=== PATIENT | male | born 1980 | race African-American/Black ===

== ENCOUNTER 2016-09-19 09:48 | Inpatient (IN) | payer MEDICARE, OTHER ==
[2016-09-19] VITALS (10 sets, daily range): BP systolic 102–130; BP diastolic 61–77; PULSE 74–90; RESP 14–20; TEMP 97.6–98.2; O2SAT 93–100
[~2016-09-19] VITALS: Ht 175.3 cm; Wt 68.0 kg
[2016-09-19] MEDS ORDERED: SODIUM CHLOR 0.9% 1000 ML INJ 1,000 ML IV ONE (10:20)
[2016-09-19] MEDS ORDERED: PROM25TA5 PO (10:21)
[2016-09-19] MEDS ORDERED: DILA4TAB2 PO (10:21)
[2016-09-19] MEDS ORDERED: ONDANSETRON HCL 4 MG/2 ML VIAL IVP ONE (10:30)
[2016-09-19] MEDS ORDERED: HYDROmorphone HCL PF 1 MG/ML VIAL IVS ONE (10:30)
[2016-09-19] MEDS: SODIUM CHLORIDE 0.9% FLUSH 5 ML FLUSH IVF PRN ×3 (10:33→13:03)
[2016-09-19] MEDS ORDERED: NUCY50TA9 PO (10:34)
[2016-09-19 11:00] LABS: BASOPHIL % 0.3 % (0.0-2.0); EOSINOPHIL # 0.1 TH/MM3 (0-0.4); EOSINOPHIL % 0.5 % (0.0-4.0); HEMATOCRIT 27.4 % (39.0-51.0); LYMPH % 36.6 % (9.0-44.0); LYMPHOCYTE # 4.9 TH/MM3 (1.0-4.8); MEAN CELL VOLUME 91.8 FL (80.0-100.0); MEAN CORPUSCULAR HEMOGLOBIN 32.4 PG (27.0-34.0); MEAN CORPUSCULAR HGB CONC 35.2 % (32.0-36.0); MONO % 10.2 % (0.0-8.0); NEUT % 52.4 % (16.0-70.0); PLATELET COUNT 357 TH/MM3 (150-450); RED BLOOD COUNT 2.99 MIL/MM3 (4.50-5.90); RED CELL DISTRIBUTION WIDTH 22.7 % (11.6-17.2); RETIC % 8.2 % (0.4-3.0); WHITE BLOOD COUNT 13.4 TH/MM3 (4.0-11.0)
[2016-09-19 11:02] LABS: HEMO FLAGS AUTO DIFF; REVIEW FLAG FINAL
--- NOTE | 2016-09-19 11:12 | RADRPT ---
EXAM DATE/TIME: 09/19/2016 10:56 [facility] COMPARISON: CHEST SINGLE AP, August 03, 2016, 9:13. INDICATIONS : Sickle cell crisis. Shortness of breath. MEDICAL HISTORY : Sickle Cell disease. SURGICAL HISTORY : None. ENCOUNTER: Initial ACUITY: 2 weeks PAIN SCORE: 0/10 LOCATION: Bilateral chest FINDINGS: PA and lateral views of the chest demonstrate a normal-sized cardiac silhouette. Right chest wall Inf use-a-Port remains present with lead tip in the right heart. No effusion, consolidation, or pneumotho rax is visualized. Bones and soft tissues demonstrate no acute finding. Cholecystectomy clips are pre sent. CONCLUSION: No acute cardiopulmonary abnormality is identified. Cdyrtl-j-Iwuo distal tip remains in the right hea rt. Will Jenkins MD on September 19, 2016 at 11:09 Board Certified Radiologist. This report was verified electronically.
[2016-09-19] MEDS ORDERED: HYDROmorphone HCL PF 1 MG/ML VIAL IV PUSH ONE ×2 (11:15→12:45)
[2016-09-19 11:16] LABS: ALKALINE PHOSPHATASE 131 U/L (45-117); ALT (GPT) 31 U/L (12-78); ANION GAP 11 MEQ/L (5-15); AST (GOT) 34 U/L (15-37); BICARBONATE 25.4 MEQ/L (21.0-32.0); BLOOD UREA NITROGEN 10 MG/DL (7-18); CHLORIDE 105 MEQ/L (98-107); GLOMERULAR FILTRATION RATE 228 ML/MIN (>89); SODIUM (NA) 141 MEQ/L (136-145); TOTAL BILIRUBIN ADULT 3.9 MG/DL (0.2-1.0)
[2016-09-19 11:23] LABS: POTASSIUM 2.9 MEQ/L (3.5-5.1)
[2016-09-19 12:07] LABS: CORRECTED NUCLEATED RBC 3 /100 WBC (0-0); NEUTROPHIL # MANUAL DIFF 8.8 TH/MM3 (1.8-7.7); POLYS (SEG NEUTROPHILS) 66 % (16-70); WBC DIFF SAMPLE 100
[2016-09-19 12:08] LABS: PLATELET ESTIMATE SMEAR NORMAL (NORMAL); PLATELET MORPHOLOGY NORMAL (NORMAL); POLYCHROMASIA 3.6 % (0.0-1.9); SCAN/DIFF FINAL DIFF MANUAL
[2016-09-19 12:09] LABS: OVALOCYTES 1+ (NORMAL); TARGET CELLS 1+ (NORMAL)
[2016-09-19 12:10] LABS: KERATOCYTES OCC (NORMAL)
--- NOTE | 2016-09-19 12:11 | RADRPT ---
EXAM DATE/TIME: 09/19/2016 11:01 [facility] COMPARISON: No previous studies available for comparison. INDICATIONS : Pain from sickle cell crisis. MEDICAL HISTORY : None. SURGICAL HISTORY : None. ENCOUNTER: Initial ACUITY: 2 weeks PAIN SCORE: 5/10 LOCATION: Left hip. FINDINGS: AP and lateral views of the left hip demonstrate a normal lucency in the femoral head characteristic of avascular necrosis. There is subtle step off along the superior femoral head possibly representing mild collapse. No fracture is identified. There is mild superior joint space narrowing. The remainin g visualized pelvic bones demonstrate no acute finding. CONCLUSION: Abnormal femoral head characteristic of avascular necrosis. There is a slight step off or flattening along the superior aspect which may represent mild collapse. Will Jenkins MD on September 19, 2016 at 12:08 Board Certified Radiologist. This report was verified electronically.
--- NOTE | 2016-09-19 12:12 | RADRPT ---
EXAM DATE/TIME: 09/19/2016 11:03 [facility] COMPARISON: HIP LEFT (AP&LAT 2/3VWS) WO AP PELVIS, September 19, 2016, 11:01. INDICATIONS : Pain from sickle cell crisis. MEDICAL HISTORY : None. SURGICAL HISTORY : None. ENCOUNTER: Initial ACUITY: 2 weeks PAIN SCORE: 5/10 LOCATION: Left hip. FINDINGS: 4 views of the left femur demonstrate no fracture or dislocation. There is abnormal lucency within th e left femoral head. No soft tissue abnormality or radiopaque foreign body is identified. CONCLUSION: Abnormal appearance of the femoral head characteristic of avascular necrosis. No acute abnormality is identified otherwise. Wlil Jenkins MD on September 19, 2016 at 12:09 Board Certified Radiologist. This report was verified electronically.
[2016-09-19] MEDS ORDERED: POTASSIUM CHLORIDE 10 MEQ CONTROLLED RELEASE TAB PO ONE (12:30)
--- NOTE | 2016-09-19 13:13 | PD ---
HPI Chief Complaint: Sickle Cell Time Seen by Provider: 10:15 Travel History International Travel<30 days: No Contact w/Intl Traveler<30days: No Traveled to known affect area: No History of Present Illness HPI Patient is a 36 year old male complaining of pain all over, consistent with his sickle cell pain. He says his right leg has been hurting him for the past week. He saw Dr. Alfonso yesterday for the pain and was given IVF and Dilaudid and he ordered Xrays for his legs. He says he occasionally feels short of breath from the pain. He denies any chest pain. He tried taking his Dilaudid at home, but it did not help, so he came in. He has not had any fevers. He denies any leg swelling or any injuries. PFSH Past Medical History Diminished Hearing: No Implanted Vascular Access Dvce: Yes (POWER PORT) Sickle Cell Disease: Yes Tetanus Vaccination: Unknown Influenza Vaccination: No Past Surgical History Cholecystectomy: Yes Other Surgery: Yes (PORT PLACED) Social History Alcohol Use: Yes (OCC) Tobacco Use: No Substance Use: No Allergies-Medications (Allergen,Severity, Reaction): Coded Allergies: No Known Allergies (Unverified , 08/03/16) Reported Meds & Prescriptions Reported Meds & Active Scripts Active Reported Nucynta (Tapentadol) 50 Mg Tab 50 Mg PO Q4H PRN Dilaudid (Hydromorphone HCl) 4 Mg Tab 4 Mg PO Q6H PRN Phenergan (Promethazine HCl) 25 Mg Tab 25 Mg PO Q6H PRN Review of Systems Except as stated in HPI: all other systems reviewed are Neg General / Constitutional: No: Fever HENT: No: Headaches, Lightheadedness Cardiovascular: No: Chest Pain or Discomfort Respiratory: Positive: Shortness of Breath, No: Cough Gastrointestinal: No: Nausea, Vomiting Genitourinary: No: Dysuria Musculoskeletal: Positive: Myalgias, Arthralgias Skin: No Rash, No Change in Pigmentation Neurologic: No: Weakness, Dizziness Physical Exam Narrative GENERAL: Awake and alert in no acute distress. SKIN: Warm and dry. HEAD: Atraumatic. Normocephalic. EYES: Pupils equal and round. No scleral icterus. ENT: Mucous membranes pink and moist. NECK: Trachea midline. No JVD. CARDIOVASCULAR: Regular rate and rhythm. No murmur appreciated. RESPIRATORY: No accessory muscle use. Clear to auscultation. Breath sounds equal bilaterally. GASTROINTESTINAL: Abdomen soft, non-tender, nondistended. MUSCULOSKELETAL: No obvious deformities. No clubbing. No cyanosis. No edema. No calf tenderness. NEUROLOGICAL: Awake and alert. No obvious cranial nerve deficits. Motor grossly within normal limits. Normal speech. PSYCHIATRIC: Appropriate mood and affect; insight and judgment normal. Data Data Last Documented VS Vital Signs Date Time Temp Pulse Resp B/P Pulse Ox O2 Delivery O2 Flow Rate FiO2 09/19/16 13:00 82 16 130/75 98 Room Air 09/19/16 11:06 2 09/19/16 09:50 98.2 Orders Complete Blood Count With Diff (09/19/16 10:20) Comprehensive Metabolic Panel (09/19/16 10:20) Retic Count (09/19/16 10:20) Chest, Pa & Lat (09/19/16 10:20) Ecg Monitoring (09/19/16 10:20) Iv Access Insert/Monitor (09/19/16 10:20) Oximetry (09/19/16 10:20) Ondansetron Inj (Zofran Inj) (09/19/16 10:30) Sodium Chloride 0.9% Flush (Ns Flush) (09/19/16 10:30) Sodium Chlor 0.9% 1000 Ml Inj (Ns 1000 M (09/19/16 10:20) Hydromorphone Pf Inj (Dilaudid Pf Inj) (09/19/16 10:30) Femur (Ap & Lat/2vws) (09/19/16 ) Hip, Uni(Ap&Lat) Wo Ap Pelvis (09/19/16 ) Hydromorphone Pf Inj (Dilaudid Pf Inj) (09/19/16 11:15) Potassium Chloride (Kcl) (09/19/16 12:30) Hydromorphone Pf Inj (Dilaudid Pf Inj) (09/19/16 12:45) Admit Order (Ed Use Only) (09/19/16 ) Ns + Kcl 20 Meq Inj (Ns + Kcl 20 Meq Inj (09/19/16 15:00) Hydromorphone (Dilaudid) (09/19/16 13:30) Labs Laboratory Tests Test 09/19/16 10:30 White Blood Count 13.4 TH/MM3 Red Blood Count 2.99 MIL/MM3 Hemoglobin 9.7 GM/DL Hematocrit 27.4 % Mean Corpuscular Volume 91.8 FL Mean Corpuscular Hemoglobin 32.4 PG Mean Corpuscular Hemoglobin 35.2 % Concent Red Cell Distribution Width 22.7 % Platelet Count 357 TH/MM3 Mean Platelet Volume 10.1 FL Neutrophils (%) (Auto) 52.4 % Lymphocytes (%) (Auto) 36.6 % Monocytes (%) (Auto) 10.2 % Eosinophils (%) (Auto) 0.5 % Basophils (%) (Auto) 0.3 % Neutrophils # (Auto) 7.0 TH/MM3 Lymphocytes # (Auto) 4.9 TH/MM3 Monocytes # (Auto) 1.4 TH/MM3 Eosinophils # (Auto) 0.1 TH/MM3 Basophils # (Auto) 0.0 TH/MM3 CBC Comment AUTO DIFF Differential Total Cells 100 Counted Neutrophils % (Manual) 66 % Lymphocytes % 24 % Monocytes % 10 % Neutrophils # (Manual) 8.8 TH/MM3 Nucleated Red Blood Cells 3 /100 WBC Differential Comment FINAL DIFF MANUAL Platelet Estimate NORMAL Platelet Morphology Comment NORMAL Polychromasia 3.6 % Target Cells 1+ Ovalocytes 1+ Keratocytes OCC Red Cell Morphology Comment Reticulocyte Count 8.2 % Absolute Reticulocyte Count 243.6 MIL/L Sodium Level 141 MEQ/L Potassium Level 2.9 MEQ/L Chloride Level 105 MEQ/L Carbon Dioxide Level 25.4 MEQ/L Anion Gap 11 MEQ/L Blood Urea Nitrogen 10 MG/DL Creatinine 0.50 MG/DL Estimat Glomerular Filtration 228 ML/MIN Rate Random Glucose 105 MG/DL Calcium Level 8.4 MG/DL Magnesium Level 1.9 MG/DL Total Bilirubin 3.9 MG/DL Aspartate Amino Transf 34 U/L (AST/SGOT) Alanine Aminotransferase 31 U/L (ALT/SGPT) Alkaline Phosphatase 131 U/L Total Protein 8.4 GM/DL Albumin 4.3 GM/DL [facility] Medical Decision Making Medical Screen Exam Complete: Yes Emergency Medical Condition: Yes Medical Record Reviewed: Yes Differential Diagnosis Sickle cell pain crisis versus anemia versus electrolyte abnormality versus dehydration Narrative Course Patient is a 36-year-old male complaining of pain all over, similar to previous sickle cell crises. Exam shows no acute abnormalities. Labs sent, patient given IV fluids as well as Dilaudid for pain. Labs show a white blood cell count of 13.4, which is similar to previous. Hemoglobin is 9.7 with a reticulocyte count of 8.2, which is appropriately elevated. Potassium is low at 2.9, this was replaced. Chest x-ray shows no acute abnormalities. Hip x-ray is concerning for avascular necrosis. He continued to have pain, given second dose of hydromorphone. Patient continued to complain of pain. I discussed with him admission for his symptoms, and he feels this is necessary at this time. Given third dose of hydromorphone. Patient will be admitted for further management. Diagnosis Primary Impression: Sickle cell crisis Additional Impression: Avascular necrosis Admitting Information Admitting Physician Requests: Admit Ramona Bobo MD Sep 19, 2016 13:13
[2016-09-19] MEDS ORDERED: BISACODYL 10 MG SUPP PR PRN (13:30)
[2016-09-19] MEDS ORDERED: METOCLOPRAMIDE HCL 10 MG/2 ML VIAL IV PUSH PRN (13:30)
[2016-09-19] MEDS ORDERED: ACETAMINOPHEN 325 MG TAB PO PRN (13:30)
[2016-09-19] MEDS ORDERED: HYDROmorphone HCL PF 2 MG/ML VIAL IV PRN (13:30)
[2016-09-19] MEDS ORDERED: MAGNESIUM HYDROXIDE SUSP 30 ML CUP PO PRN (13:30)
[2016-09-19] MEDS ORDERED: SENNOSIDES 8.6 MG TAB PO PRN (13:30)
[2016-09-19] MEDS ORDERED: PROCHLORPERAZINE 25 MG SUPP PR PRN (13:30)
[2016-09-19] MEDS ORDERED: NALOXONE HCL 0.4 MG/ML AMP IV PRN (13:30)
[2016-09-19] MEDS ORDERED: SODIUM CHLORIDE 0.9% FLUSH 5 ML FLUSH FLUSH PRN (13:30)
[2016-09-19] MEDS: NS + KCL 20 MEQ INJ 1,000 ML IV SCH ×2 (13:52→23:38)
[2016-09-19] MEDS: DOCUSATE SODIUM 100 MG CAP PO SCH ×2 (13:52→20:57)
--- NOTE | 2016-09-19 15:22 | HHI.HP ---
[facility] Service [facility] Primary [facility] Physician Non-Staff Admission Diagnosis sickle cell crisis Diagnoses: Chief Complaint: Generalized pain Travel History International Travel<30 Days: No Contact w/Intl Traveler <30 Da: No Traveled to Known Affected Are: No History of Present Illness 36-year-old male with a past medical history of sickle cell disease who presents with sickle cell pain. The patient complains of generalized pain, typical of his usual sickle cell crisis. However he also has been having pain in his left lower extremity from his hip down to his knee that has been getting progressively worse over the past 2 months specially with ambulation. He denies any injury. He hasn't ambulate, but with a limp. He recently moved to this area and has been following with hematology, Dr. Alfonso, who has been managing his pain control. He denies any fever, chills, cough, nausea, vomiting , diarrhea, dysuria. Review of Systems Other 10 point review of systems performed and was negative except as stated in the history of present illness Past Family Social History Past Medical History Sickle cell disease History of acute chest syndrome Past Surgical History Port placement Cholecystectomy Reported Medications Nucynta (Tapentadol) 50 Mg Tab 50 Mg PO Q4H PRN Dilaudid (Hydromorphone HCl) 4 Mg Tab 4 Mg PO Q6H PRN Phenergan (Promethazine HCl) 25 Mg Tab 25 Mg PO Q6H PRN Allergies: Coded Allergies: No Known Allergies (Unverified , 08/03/16) Active Ordered Medications Current Medications Medications (Trade) Dose Ordered Sig/Arlen Route Start Time Stop Time Status Last Admin (NS + KCl 20 Meq Inj) 1,000 ml @ 100 mls/hr Q10H IV 09/19/16 15:00 09/19/16 13:52 (Dilaudid) 4 mg Q6H PRN PO 09/19/16 13:30 (NS Flush) 2 ml UNSCH PRN FLUSH 09/19/16 13:30 (NS Flush) 2 ml BID FLUSH 09/19/16 21:00 (Tylenol) 650 mg Q4H PRN PO 09/19/16 13:30 (Zofran Inj) 4 mg Q6H PRN IVP 09/19/16 13:30 (Reglan Inj) 5 mg Q6H PRN IV PUSH 09/19/16 13:30 (Compazine Supp) 25 mg Q12H PRN RI 09/19/16 13:30 (Dulcolax Supp) 10 mg DAILY PRN RI 09/19/16 13:30 (Colace) 100 mg Q12HR PO 09/19/16 13:30 09/19/16 13:52 (Milk Of Magnesia Liq) 30 ml Q12H PRN PO 09/19/16 13:30 (Senokot) 17.2 mg Q12H PRN PO 09/19/16 13:30 (Dilaudid Pf Inj) 2 mg Q4HR PRN IV 09/19/16 13:30 (Dilaudid Pf Inj) 2 mg Q4HR PRN IV 09/19/16 13:30 (Narcan Inj) 0.4 mg UNSCH PRN IV 09/19/16 13:30 (KCl) 40 meq ONCE ONCE PO 09/19/16 15:30 09/19/16 15:31 (Folate) 1 mg DAILY PO 09/19/16 15:15 UNV (Hydrea) 1,500 mg DAILY PO 09/20/16 09:00 UNV Family History Patient has a cousin with sickle cell disease, otherwise unremarkable family history Social History Denies any alcohol, tobacco, or illegal drug use Physical Exam Vital Signs Vital Signs Date Time Temp Pulse Resp B/P Pulse Ox O2 Delivery O2 Flow Rate FiO2 09/19/16 15:07 16 09/19/16 14:17 93 21 09/19/16 13:00 82 16 130/75 98 Room Air 09/19/16 12:11 16 09/19/16 12:00 74 16 125/76 97 Room Air 09/19/16 11:06 90 14 119/72 100 Nasal Cannula 2 09/19/16 11:01 16 09/19/16 10:30 78 16 118/71 100 Room Air 09/19/16 10:23 16 100 Room Air 09/19/16 09:55 18 100 Nasal Cannula 2 09/19/16 09:50 98.2 82 16 124/77 95 Room Air Physical Exam GENERAL: Well-developed well-nourished. In no acute distress. SKIN: Warm and dry. No lesions noted. HEENT: Normocephalic. Pupils equal and round. Mucous membranes pink and moist. CARDIOVASCULAR: Regular rate and rhythm. No murmur appreciated. RESPIRATORY: No accessory muscle use. Clear to auscultation. Breath sounds equal bilaterally. GASTROINTESTINAL: Abdomen soft, non-tender, nondistended. Bowel sounds x4. MUSCULOSKELETAL: Left hip with no obvious deformities, erythema. Painful ROM left hip. No clubbing or cyanosis. No edema. NEUROLOGICAL: Awake and alert. No focal neurological deficits. Moves upper and lower extremities spontaneously. Normal speech. PSYCHIATRIC: Appropriate mood and affect; insight and judgment normal. Laboratory Laboratory Tests Test 09/19/16 10:30 White Blood Count 13.4 Red Blood Count 2.99 Hemoglobin 9.7 Hematocrit 27.4 Mean Corpuscular Volume 91.8 Mean Corpuscular Hemoglobin 32.4 Mean Corpuscular Hemoglobin 35.2 Concent Red Cell Distribution Width 22.7 Platelet Count 357 Mean Platelet Volume 10.1 Neutrophils (%) (Auto) 52.4 Lymphocytes (%) (Auto) 36.6 Monocytes (%) (Auto) 10.2 Eosinophils (%) (Auto) 0.5 Basophils (%) (Auto) 0.3 Neutrophils # (Auto) 7.0 Lymphocytes # (Auto) 4.9 Monocytes # (Auto) 1.4 Eosinophils # (Auto) 0.1 Basophils # (Auto) 0.0 CBC Comment AUTO DIFF Differential Total Cells 100 Counted Neutrophils % (Manual) 66 Lymphocytes % 24 Monocytes % 10 Neutrophils # (Manual) 8.8 Nucleated Red Blood Cells 3 Differential Comment FINAL DIFF MANUAL Platelet Estimate NORMAL Platelet Morphology Comment NORMAL Polychromasia 3.6 Target Cells 1+ Ovalocytes 1+ Keratocytes OCC Red Cell Morphology Comment Reticulocyte Count 8.2 Absolute Reticulocyte Count 243.6 Sodium Level 141 Potassium Level 2.9 Chloride Level 105 Carbon Dioxide Level 25.4 Anion Gap 11 Blood Urea Nitrogen 10 Creatinine 0.50 Estimat Glomerular Filtration 228 Rate Random Glucose 105 Calcium Level 8.4 Magnesium Level 1.9 Total Bilirubin 3.9 Aspartate Amino Transf 34 (AST/SGOT) Alanine Aminotransferase 31 (ALT/SGPT) Alkaline Phosphatase 131 Total Protein 8.4 Albumin 4.3 Result Diagram: 09/19/16 1030 09/19/16 1030 Imaging Chest x-ray image interpreted by me with no acute cardio pulmonary disease Last Impressions Chest X-Ray 09/19/16 1020 Signed Impressions: Service Date/Time: Monday, September 19, 2016 10:56 - CONCLUSION: No acute cardiopulmonary abnormality is identified. [id number] distal tip remains in the right heart. Will Jenkins MD Hip X-Ray 09/19/16 0000 Signed Impressions: Service Date/Time: Monday, September 19, 2016 11:01 - CONCLUSION: Abnormal femoral head characteristic of avascular necrosis. There is a slight step off or flattening along the superior aspect which may represent mild collapse. Will Jenkins MD Femur X-Ray 09/19/16 0000 Signed Impressions: Service Date/Time: Monday, September 19, 2016 11:03 - CONCLUSION: Abnormal appearance of the femoral head characteristic of avascular necrosis. No acute abnormality is identified otherwise. Will Jenkins MD Assessment and Plan Problem List: (1) Avascular necrosis ICD Code: M87.00 Status: Acute (2) Sickle cell crisis ICD Code: D57.00 Status: Acute Assessment and Plan 36-year-old male with a past medical history of sickle cell disease who presents with sickle cell pain Sickle cell crisis: Hemoglobin 9.7, baseline around 10, stable. Absolute reticulocyte count elevated at 243. Continue pain control with oral and IV Dilaudid as needed. Continue hydroxyurea and folic acid. IVF. 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 Avascular necrosis of the left hip: Seen on x-ray, reviewed. Pain control. PT eval. Outpatient orthopedic follow-up. Hypokalemia: Potassium 2.9. Magnesium 1.9. Replace potassium orally. Follow- up BMP. Chronic mild leukocytosis. Monitor DVT prophylaxis: SCDs Written by Alfa Swift, acting as scribe for Dr. Ng on 09/19/16 at 15:14. The documentation accurately reflects the work performed [id number] by me on at 15:14 Discussed Condition With Patient Alfa Swift Sep 19, 2016 15:22 Raphael Ng MD Sep 19, 2016 15:29
[2016-09-19] MEDS ORDERED: POTASSIUM CHLORIDE 20 MEQ CONTROLLED RELEASE TAB PO ONE (15:30)
[2016-09-19] MEDS: FOLIC ACID 1 MG TAB PO SCH (16:34)
[2016-09-19] MEDS: HYDROmorphone HCL PF 2 MG/ML VIAL IV PRN ×2 (16:35→20:57)
[2016-09-19] MEDS: ONDANSETRON HCL 4 MG/2 ML VIAL IVP PRN (18:42)
[2016-09-19] MEDS: SODIUM CHLORIDE 0.9% FLUSH 5 ML FLUSH FLUSH SCH (20:56)
[2016-09-20] VITALS (8 sets, daily range): BP systolic 99–121; BP diastolic 57–76; PULSE 73–88; RESP 18–20; TEMP 96.7–97.9; O2SAT 93–94
[2016-09-20] MEDS: HYDROmorphone HCL PF 2 MG/ML VIAL IV PRN ×6 (00:38→22:46)
--- NOTE | 2016-09-20 08:51 | HHI.PR ---
Subjective Remarks Follow-up for sickle cell crisis. The patient states his pain as a 7/10 in severity. Pain continues to be generalized. He denies any significant change overnight. Objective Vitals Vital Signs Date Time Temp Pulse Resp B/P Pulse Ox O2 Delivery O2 Flow Rate FiO2 09/20/16 07:31 96.9 78 18 99/58 93 09/20/16 05:26 97.2 88 20 121/76 93 09/20/16 00:49 97.6 86 20 105/63 94 09/19/16 20:00 80 09/19/16 20:00 95 09/19/16 19:53 97.6 77 20 102/63 96 09/19/16 17:05 16 09/19/16 16:00 74 16 111/61 98 Room Air 09/19/16 15:07 16 09/19/16 14:17 93 21 09/19/16 13:00 82 16 130/75 98 Room Air 09/19/16 12:11 16 09/19/16 12:00 74 16 125/76 97 Room Air 09/19/16 11:06 90 14 119/72 100 Nasal Cannula 2 09/19/16 11:01 16 09/19/16 10:30 78 16 118/71 100 Room Air 09/19/16 10:23 16 100 Room Air 09/19/16 09:55 18 100 Nasal Cannula 2 09/19/16 09:50 98.2 82 16 124/77 95 Room Air I/O 09/19/16 09/19/16 09/19/16 09/20/16 09/20/16 09/20/16 07:00 15:00 23:00 07:00 15:00 23:00 Output Total 600 ml Balance -600 ml Output Urine Total 600 ml # Voids 1 Result Diagram: 09/19/16 1030 09/19/16 1030 Imaging Last Impressions Chest X-Ray 09/19/16 1020 Signed Impressions: Service Date/Time: Monday, September 19, 2016 10:56 - CONCLUSION: No acute cardiopulmonary abnormality is identified. [id number] distal tip remains in the right heart. Will Jenkins MD Hip X-Ray 09/19/16 0000 Signed Impressions: Service Date/Time: Monday, September 19, 2016 11:01 - CONCLUSION: Abnormal femoral head characteristic of avascular necrosis. There is a slight step off or flattening along the superior aspect which may represent mild collapse. Will Jenkins MD Femur X-Ray 09/19/16 0000 Signed Impressions: Service Date/Time: Monday, September 19, 2016 11:03 - CONCLUSION: Abnormal appearance of the femoral head characteristic of avascular necrosis. No acute abnormality is identified otherwise. Will Jenkins MD Objective Remarks GENERAL: Well-developed well-nourished. In no acute distress. SKIN: Warm and dry. No lesions noted. HEENT: Normocephalic. Pupils equal and round. Mucous membranes pink and moist. CARDIOVASCULAR: Regular rate and rhythm. No murmur appreciated. RESPIRATORY: No accessory muscle use. Clear to auscultation. Breath sounds equal bilaterally. GASTROINTESTINAL: Abdomen soft, non-tender, nondistended. Bowel sounds x4. MUSCULOSKELETAL: No obvious deformities. No clubbing or cyanosis. No edema. NEUROLOGICAL: Awake and alert. No focal neurological deficits. Moves upper and lower extremities spontaneously. Normal speech. PSYCHIATRIC: Appropriate mood and affect; insight and judgment normal. A/P Problem List: (1) Avascular necrosis ICD Code: M87.00 Status: Acute (2) Sickle cell crisis ICD Code: D57.00 Status: Acute Assessment and Plan 36-year-old male with a past medical history of sickle cell disease who presents with sickle cell pain Sickle cell crisis: Hemoglobin 9.7, baseline around 10, stable. Absolute reticulocyte count elevated at 243. Continue pain control with oral and IV Dilaudid as needed. Continue hydroxyurea and folic acid. IVF. Consulted patient's afterschool babysitter. Follow-up CBC pending. Avascular necrosis of the left hip: Seen on x-ray, reviewed. Pain control. PT eval pending at. Outpatient orthopedic follow-up. Hypokalemia: Potassium 2.9. Magnesium 1.9. Replaced potassium orally. Follow- up BMP pending. Chronic mild leukocytosis. Monitor DVT prophylaxis: SCDs Written by Alfa Swift, acting as scribe for Dr. Ng on 09/20/16 at 08:51. The documentation accurately reflects the work performed [id number] by me on at [id number] Discharge Planning Disposition pending further clinical improvement. Alfa Swift Sep 20, 2016 08:51 Raphael Ng MD Sep 20, 2016 14:59
[2016-09-20] MEDS: DOCUSATE SODIUM 100 MG CAP PO SCH ×2 (09:00→20:49)
[2016-09-20] MEDS: FOLIC ACID 1 MG TAB PO SCH (09:46)
[2016-09-20] MEDS: HYDROXYUREA 500 MG CAP PO SCH (09:46)
[2016-09-20] MEDS: ONDANSETRON HCL 4 MG/2 ML VIAL IVP PRN ×2 (09:47→18:34)
[2016-09-20] MEDS: NS + KCL 20 MEQ INJ 1,000 ML IV SCH ×2 (09:50→20:49)
[2016-09-20] MEDS: SODIUM CHLORIDE 0.9% FLUSH 5 ML FLUSH FLUSH SCH ×2 (09:50→20:49)
[2016-09-20 10:23] LABS: AUTOMATED NEUTROPHIL # 6.4 TH/MM3 (1.8-7.7); BASOPHIL # 0.1 TH/MM3 (0-0.2); EOSINOPHIL # 0.2 TH/MM3 (0-0.4); EOSINOPHIL % 1.8 % (0.0-4.0); HEMATOCRIT 25.5 % (39.0-51.0); LYMPH % 27.9 % (9.0-44.0); LYMPHOCYTE # 3.2 TH/MM3 (1.0-4.8); MEAN CELL VOLUME 91.1 FL (80.0-100.0); MEAN CORPUSCULAR HGB CONC 35.2 % (32.0-36.0); MONO % 13.4 % (0.0-8.0); NEUT % 55.9 % (16.0-70.0); PLATELET COUNT 309 TH/MM3 (150-450); RED CELL DISTRIBUTION WIDTH 23.1 % (11.6-17.2); WHITE BLOOD COUNT 11.5 TH/MM3 (4.0-11.0)
[2016-09-20 10:27] LABS: HEMO FLAGS AUTO DIFF
[2016-09-20 10:46] LABS: BICARBONATE 27.9 MEQ/L (21.0-32.0); MAGNESIUM 1.7 MG/DL (1.5-2.5); POTASSIUM 3.3 MEQ/L (3.5-5.1)
[2016-09-20 11:14] LABS: BASOPHILS 2 % (0-2); CORRECTED NUCLEATED RBC 5 /100 WBC (0-0); EOSINOPHILS 2 % (0-4); NEUTROPHIL # MANUAL DIFF 7.4 TH/MM3 (1.8-7.7); PLATELET ESTIMATE SMEAR NORMAL (NORMAL); PLATELET MORPHOLOGY ENLARGED (NORMAL); POLYS (SEG NEUTROPHILS) 64 % (16-70); SCAN/DIFF FINAL DIFF MANUAL; SICKLE CELLS 1+ (NORMAL); WBC DIFF SAMPLE 100
[2016-09-20 11:15] LABS: OVALOCYTES 1+ (NORMAL)
[2016-09-20 11:16] LABS: HOWELL-JOLLY BODIES PRESENT (NONE SEEN)
[2016-09-20] MEDS ORDERED: POTASSIUM CHLORIDE 10 MEQ CONTROLLED RELEASE TAB PO ONE (13:45)
--- NOTE | 2016-09-20 21:54 | MB ---
cc: ROME ROTHMAN DATE OF CONSULTATION 09/20/2016 DATE OF 1980 REASON FOR CONSULTATION Patient with a history of sickle cell disease presents with pain crisis. CHIEF COMPLAINT Dyspnea and pain. HISTORY OF THE PRESENT ILLNESS Mr. 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 He had recently moved to the [facility]. Previously he was seeing a configuration manager in [place]. The patient has been seen by my colleague Dr. Alfonso in the past. The patient states that he has been having generalized muscle pains over the past two to three days. Most specifically he has pain in his left lower extremity from hip down to the knee and has been progressively getting worse. He has not had any fevers or chills. No night sweats. On admission a femur x-ray was completed which shows abnormal appearance of the femoral head characteristic of avascular necrosis. On admission his WBC 13.4, hemoglobin is 9.7, platelet count of 357,000. His total bilirubin is 3.9. The patient was admitted to the hospital for sickle cell crisis. On the average the patient has sickle cell crises twice a year. He has had a history of acute chest syndrome in the past. He has not had any stroke. The patient was previously discharged on Hydrea. He has no history of splenic infarction in the past. His baseline hemoglobin is somewhat between 9 and 10. Currently he denies any fevers, chills. He is currently not hypoxic. He denies any dyspnea. He does not have any congestion. REVIEW OF SYSTEMS A comprehensive 14-point review of systems was completed which is negative except as described in the HPI. PAST MEDICAL HISTORY 1. History of sickle cell disease. 2. Anemia. 3. Anxiety. PAST SURGICAL HISTORY 1. History of port placement. 2. History of cholecystectomy. FAMILY HISTORY The patient's father of unknown type of cancer at age 67. His first sister has sickle cell disease. Another sister also has sickle cell disease who is 3 years old. SOCIAL HISTORY He is legally . He does not smoke. He does not drink alcohol. MEDICATIONS 1. Hydroxyurea 1500 milligrams one tablet p.o. daily. 2. Folic acid one milligram p.o. daily. 3. Dilaudid 4 milligrams one tablet p.o. q.6h as needed. 4. Tylenol 650 p.o. q.4h as needed. 5. Zofran 4 milligrams IV q.6h. 6. Reglan 5 milligrams IV q.6h. 7. Compazine 25 milligrams q.12h as needed. 8. Senna. 9. Megace. ALLERGIES HE DOES NOT HAVE ANY KNOWN DRUG ALLERGIES. PHYSICAL EXAMINATION VITAL SIGNS: Blood pressure is 106/57, pulse is in the 80s, temperature is 96.7, O2 sats are 94%. GENERAL: Alert and oriented, in mild distress. HEENT: Pupils are equal, round, reactive to light. EOMI. No oral thrush. No oral lesion. NECK: Supple. No JVD, no bruits. No lymphadenopathy. CHEST: Clear to auscultation bilaterally. CARDIOVASCULAR: S1-S2 regular rate and rhythm. No murmur, gallops or rubs. ABDOMEN: Soft, nontender, nondistended. Bowel sounds are present. EXTREMITIES: He has hip pain extending down to the knee. Range of motion is intact. SKIN: Without any petechiae, lesion or bruises. NEUROLOGICAL: No focal deficits. PSYCHIATRIC: Mood and affect is appropriate. IMAGING STUDIES Reviewed in the EMR. ASSESSMENT/PLAN This is a 36-year-old male with a past medical history of sickle cell disease who presents today with acute pain crisis and pain in his hip. 1. Sickle cell crises. 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 His baseline hemoglobin is between 9-10. I reviewed his labs and his current hemoglobin is 9. No blood transfusion is indicated at this time. We will check CBC on a daily basis. Check LDH, retic count and bilirubin component. Incentive spirometry, supplemental oxygen. Continue hydroxyurea 1500 mg daily, folic acid daily. 2. Avascular necrosis of the femur. We will obtain orthopedic consultation. 3. Pain control. I agree with current narcotic regimen. 4. Anxiety. He takes Celexa and Xanax. Thank you for allowing me to participate in the care of this patient. The hematology team will continue to follow this patient along. Dr. Alfonso will return on Wednesday. He will resume the care of this patient. MD PEGGY Sanchez/JUAN /3:04 PM /9:34 PM SHARIF
[2016-09-21] VITALS (10 sets, daily range): BP systolic 104–123; BP diastolic 57–76; PULSE 70–102; RESP 18–20; TEMP 96.3–98.2; O2SAT 91–95
[2016-09-21] LABS: RETIC % 9.9 % (0.4-3.0)
[2016-09-21 00:02] LABS: REVIEW FLAG FINAL
[2016-09-21 00:09] LABS: INDIRECT BILIRUBIN 2.7 MG/DL (0.0-0.8); TOTAL BILIRUBIN ADULT 3.3 MG/DL (0.2-1.0)
[2016-09-21] MEDS: ONDANSETRON HCL 4 MG/2 ML VIAL IVP PRN ×3 (02:48→22:45)
[2016-09-21] MEDS: HYDROmorphone HCL PF 2 MG/ML VIAL IV PRN ×5 (02:49→22:44)
[2016-09-21] MEDS: NS + KCL 20 MEQ INJ 1,000 ML IV SCH ×2 (07:08→17:25)
[2016-09-21] MEDS ORDERED: NORC5TAB PO (07:09)
[2016-09-21] MEDS: FOLIC ACID 1 MG TAB PO SCH (08:43)
[2016-09-21] MEDS: HYDROXYUREA 500 MG CAP PO SCH (08:43)
[2016-09-21] MEDS: DOCUSATE SODIUM 100 MG CAP PO SCH ×2 (08:44→21:00)
[2016-09-21] MEDS: SODIUM CHLORIDE 0.9% FLUSH 5 ML FLUSH FLUSH SCH ×2 (08:44→21:00)
--- NOTE | 2016-09-21 09:56 | PD.ONC.PN ---
Subjective Subjective Remarks Afebrile overnight. Patient resting comfortably. he continues to have pain in left hip. Objective Data Date Time Temp Pulse Resp B/P Pulse Ox O2 Delivery O2 Flow Rate FiO2 09/21/16 08:40 18 09/21/16 08:15 96.3 73 18 112/57 91 09/21/16 05:15 96.7 83 18 112/74 93 09/21/16 01:55 98.2 77 20 104/60 93 09/20/16 20:07 73 09/20/16 19:56 97.9 73 20 115/68 93 09/20/16 15:48 97.3 75 19 104/57 93 09/20/16 15:31 81 09/20/16 11:28 96.7 82 20 106/57 94 Result Diagram: 09/20/16 0950 09/20/16 0950 Administered Medications Medications (Trade) Dose Ordered Sig/Arlen Route PRN Reason Start Time Stop Time Status Last Admin Dose Admin Potassium Chloride/Sodium Chloride (NS + KCl 20 Meq Inj) 1,000 ml @ 100 mls/hr Q10H IV 09/19/16 15:00 09/21/16 07:08 IV Flush (NS Flush) 2 ml BID FLUSH 09/19/16 21:00 09/20/16 20:49 Ondansetron HCl (Zofran Inj) 4 mg Q6H PRN IVP NAUSEA OR VOMITING 09/19/16 13:30 09/21/16 02:48 Docusate Sodium (Colace) 100 mg Q12HR PO 09/19/16 13:30 09/19/16 13:52 Hydromorphone HCl (Dilaudid Pf Inj) 2 mg Q4HR PRN IV Pain 6-10 09/19/16 13:30 09/21/16 07:07 Folic Acid (Folate) 1 mg DAILY PO 09/19/16 15:15 09/21/16 08:43 Hydroxyurea (Hydrea) 1,500 mg DAILY PO 09/20/16 09:00 09/21/16 08:43 Objective Remarks GENERAL: Young man, sitting up in bed in nad. SKIN: Warm and dry. HEAD: Normocephalic. EYES: No injection or drainage. NECK: Supple, trachea midline. CARDIOVASCULAR: Regular rate and rhythm RESPIRATORY: Breath sounds equal bilaterally. No accessory muscle use. GASTROINTESTINAL: Abdomen soft, non-tender, nondistended. EXTREMITIES: No cyanosis NEUROLOGICAL: awake and alert, normal speech. moving extremities. 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 --baseline hemoglobin is between 9-10. (2) Avascular necrosis Status: Acute Plan: --ortho consulted Assessment 36y/o male with a history of sickle cell disease admitted with pain crisis. h/o acute chest syndrome h/o anxiety--on Celexa + xanax Plan 1. check cbc, hepatic function panel today 2. continue supportive care with IVF, pain management, folic acid Attending Statement The exam, history, and the medical decision-making described in the above note were completed with the assistance of the mid-level provider. I reviewed and agree with the findings presented. I attest that I had a [id number] encounter with the patient on the same day, and personally performed and documented my assessment and findings in the medical record. Has left hip pain. No CP/SOB. Hgb stable. No need for transfusion. Evaluated by ortho and awaiting intraarticular injection for the hip pain. Belem Valente Sep 21, 2016 09:56 Donald Alfonso MD Sep 21, 2016 14:27
--- NOTE | 2016-09-21 10:08 | HHI.PR ---
Subjective Remarks Follow-up for sickle cell crisis and left hip pain. The patient states his pain is generalized, nonfocal. He states the pain is slightly improved today. He understands the plan to transition to oral pain control seen. Going to IR today for left hip steroid injection. Objective Vitals Vital Signs Date Time Temp Pulse Resp B/P Pulse Ox O2 Delivery O2 Flow Rate FiO2 09/21/16 08:40 18 09/21/16 08:15 96.3 73 18 112/57 91 09/21/16 05:15 96.7 83 18 112/74 93 09/21/16 01:55 98.2 77 20 104/60 93 09/20/16 20:07 73 09/20/16 19:56 97.9 73 20 115/68 93 09/20/16 15:48 97.3 75 19 104/57 93 09/20/16 15:31 81 09/20/16 11:28 96.7 82 20 106/57 94 Result Diagram: 09/20/16 0950 09/20/16 0950 Imaging Last Impressions Chest X-Ray 09/19/16 1020 Signed Impressions: Service Date/Time: Monday, September 19, 2016 10:56 - CONCLUSION: No acute cardiopulmonary abnormality is identified. [id number] distal tip remains in the right heart. Will Jenkins MD Hip X-Ray 09/19/16 0000 Signed Impressions: Service Date/Time: Monday, September 19, 2016 11:01 - CONCLUSION: Abnormal femoral head characteristic of avascular necrosis. There is a slight step off or flattening along the superior aspect which may represent mild collapse. Will Jenkins MD Femur X-Ray 09/19/16 0000 Signed Impressions: Service Date/Time: Monday, September 19, 2016 11:03 - CONCLUSION: Abnormal appearance of the femoral head characteristic of avascular necrosis. No acute abnormality is identified otherwise. Will Jenkins MD Objective Remarks GENERAL: Well-developed well-nourished. In no acute distress. SKIN: Warm and dry. No lesions noted. HEENT: Normocephalic. Pupils equal and round. Mucous membranes pink and moist. CARDIOVASCULAR: Regular rate and rhythm. No murmur appreciated. RESPIRATORY: No accessory muscle use. Clear to auscultation. Breath sounds equal bilaterally. GASTROINTESTINAL: Abdomen soft, non-tender, nondistended. Bowel sounds x4. MUSCULOSKELETAL: No obvious deformities. No clubbing or cyanosis. No edema. NEUROLOGICAL: Awake and alert. No focal neurological deficits. Moves upper and lower extremities spontaneously. Normal speech. PSYCHIATRIC: Appropriate mood and affect; insight and judgment normal. A/P Problem List: (1) Avascular necrosis ICD Code: M87.00 Status: Acute (2) Sickle cell crisis ICD Code: D57.00 Status: Acute Assessment and Plan 36-year-old male with a past medical history of sickle cell disease who presents with sickle cell pain Sickle cell crisis: Hemoglobin 9.7, baseline around 10, stable. Absolute reticulocyte count elevated at 243. Continue pain control with oral and IV Dilaudid as needed, transition to oral pain med tomorrow. Continue hydroxyurea and folic acid. IVF. Appreciate hematology input. Follow-up CBC with stable hemoglobin and slightly increased reticulocyte count. Avascular necrosis of the left hip: Seen on x-ray, reviewed. Pain control. PT recommended orthopedic follow-up. Orthopedics was consulted, plan for intra- articular steroid injection with IR. Outpatient orthopedic follow-up. Hypokalemia: Potassium low. Magnesium within normal limits. Replaced potassium orally. Chronic mild leukocytosis. Monitor. Transaminitis: Likely secondary to sickle cell disease. Monitor. DVT prophylaxis: SCDs Written by Alfa Swift, acting as scribe for Dr. Ng on 09/21/16 at 10:08. The documentation accurately reflects the work performed [id number] by me on at [id number] Discharge Planning Disposition pending further clinical improvement. Alfa Swift Sep 21, 2016 10:08 Raphael Ng MD Sep 21, 2016 16:17
--- NOTE | 2016-09-21 12:18 | MB ---
cc: ALIA TOM DATE OF CONSULTATION: 09/21/2016 CHIEF COMPLAINT Left hip pain. HISTORY OF PRESENT ILLNESS The patient is a 36-year-old -Mal[place] male who presented to the emergency department on 09/20/2016 with signs and symptoms of sickle-cell crisis. He has a long diagnosis of sickle-cell trait and sickle-cell disease. He was admitted due to sickle-cell pain. He recently has moved to the area and is being followed by Dr. Alfonso. He also was reporting left hip pain. He states that he has been having difficulty walking and ambulating. He states the pain is deep within the groin. He reports it hurts anytime he puts weight on it or walks. He states he has been walking but has been doing so with a limp. He states over the past few months the pain has gotten progressively worse. He denies any numbness, tingling or radiation of symptoms. He denies any pain anywhere else associated with this. States he hurts when he gets up from a seated position. He had no other complaints. REVIEW OF SYSTEMS A 10-point review of systems is performed but negative except for what is in the HPI. PAST MEDICAL HISTORY Positive for sickle-cell disease and acute chest syndrome. PAST SURGICAL HISTORY 1. Port placement. 2. Cholecystectomy. MEDICATIONS Reported medications are: 1. Nucynta. 2. Dilaudid. 3. Phenergan. ALLERGIES No known allergies. FAMILY HISTORY A cousin with sickle-cell disease, otherwise noncontributory. SOCIAL HISTORY Denies alcohol, tobacco or illegal drug use. PHYSICAL EXAMINATION VITAL SIGNS: Temperature 96.3 by oral route, pulse 73, respiratory rate 18, blood pressure 112/57. O2 sat 91 on room air. GENERAL: A well-developed, well-nourished 36-year-old white black male in no acute distress, resting comfortably in a hospital bed. HEAD: Normocephalic, atraumatic. EYES: Extraocular motions intact. Pupils equal, round and reactive to light. EARS: Hearing intact bilaterally. CRANIAL NERVES: Cranial nerves II through XII grossly intact. NECK: Supple. No evidence of lymphadenopathy. LUNGS: No use of accessory muscles of breathing. No audible wheezes. HEART: No evidence of grade 4 murmur. MUSCULOSKELETAL: Left leg pain with flexion or internal and external rotation of the hip. Pain experienced in the groin. Full motion of the knee, ankle and toes and no pain. Full sensation distally. No tenderness over the greater trochanter. Right lower extremity full motion of the hip, knee ankle and toes and no pain. Full sensation distally. Strength 5/5. Bilateral upper extremities full motion of the shoulders, elbows, wrists and fingers and no pain. Full sensation distally. Strength 5/5. DIAGNOSTIC IMAGING Femur x-rays and hip x-rays were ordered in the emergency department and reviewed. Hip x-rays show an abnormal femoral head characteristic of avascular necrosis. There is a slight step-off or flattening along the superior aspect which may represent mild collapse, otherwise no significant evidence of fracture or osteoarthritis, and otherwise normal hip x-ray. ASSESSMENT Avascular necrosis secondary to sickle-cell disease. PLAN At this point I advised that the patient can weight bear as tolerated. No surgical management is needed at this time. I do recommend consult to interventional radiology for an intraarticular steroid injection to the left hip for pain management. I advised the patient that eventually in the future he will require a total hip replacement due to the avascular necrosis of his hip; however, I do not think he is to that point. I recommend conservative therapy with anti-inflammatories as well as a steroid injection. I recommend he follow-up with Dr. Tom or his PA on an outpatient basis in approximately one month. I advised the patient that at that time we would discuss further treatment of his hip and see how he was doing with the steroid injection. He is orthopedically cleared for discharge and will follow-up in one month. Thank you for this consultation. Dr. Tom has reviewed and the patient's case has been discussed with him and he agrees with the above plan. Dictated by: Gonzalo Senior PA-C Gonzalo MEDRANO /8:53 AM /8:50 AM
[2016-09-21 12:26] LABS: AUTOMATED NEUTROPHIL # 7.3 TH/MM3 (1.8-7.7); BASOPHIL # 0.1 TH/MM3 (0-0.2); BASOPHIL % 0.8 % (0.0-2.0); EOSINOPHIL # 0.3 TH/MM3 (0-0.4); EOSINOPHIL % 2.6 % (0.0-4.0); LYMPH % 26.4 % (9.0-44.0); LYMPHOCYTE # 3.2 TH/MM3 (1.0-4.8); MEAN CELL VOLUME 91.1 FL (80.0-100.0); MEAN CORPUSCULAR HEMOGLOBIN 32.1 PG (27.0-34.0); MEAN CORPUSCULAR HGB CONC 35.2 % (32.0-36.0); MONO % 10.5 % (0.0-8.0); NEUT % 59.7 % (16.0-70.0); PLATELET COUNT 290 TH/MM3 (150-450); RED BLOOD COUNT 2.74 MIL/MM3 (4.50-5.90); RED CELL DISTRIBUTION WIDTH 24.5 % (11.6-17.2); WHITE BLOOD COUNT 12.2 TH/MM3 (4.0-11.0)
[2016-09-21] MEDS ORDERED: TRIAMCINOLONE ACETONIDE 40 MG/ML VIAL ONE (12:28)
[2016-09-21] MEDS ORDERED: BUPIVACAINE HCL PF 0.75% 30 ML VIAL ONE (12:28)
[2016-09-21 12:29] LABS: HEMO FLAGS AUTO DIFF
--- NOTE | 2016-09-21 12:55 | PD.RAD ---
Post Procedure Progress Note Pre Procedure Diagnosis: (1) Hip pain, left (2) Avascular necrosis Post Procedure Diagnosis: (1) Hip pain, left (2) Avascular necrosis Procedure Date: Sep 21, 2016 Supervising Radiologist: Aaron Quiroz JR Proceduralist/Assist: Alfreda Galan, RT(R)(CV), Arley Roldan RT(R)() Anesthesia: Local Plan of Activity Patient to Unit: Nursing Unit Patient Condition: Good Additional Comments: Left hip steroid injection under fluoro. See PACS Report for procedural detail/treatment Jr. Richie,Aaron Mack MD Sep 21, 2016 12:55
[2016-09-21 12:58] LABS: INDIRECT BILIRUBIN 2.1 MG/DL (0.0-0.8); TOTAL BILIRUBIN ADULT 2.7 MG/DL (0.2-1.0)
[2016-09-21] MEDS ORDERED: IOHEXOL 300 MG/ML 50 ML BTL (for RAD DIAG) ONE (12:58)
[2016-09-21 13:11] LABS: BASOPHILS 2 % (0-2); CORRECTED NUCLEATED RBC 1 /100 WBC (0-0); EOSINOPHILS 4 % (0-4); POLYS (SEG NEUTROPHILS) 57 % (16-70); WBC DIFF SAMPLE 100
[2016-09-21 13:15] LABS: SICKLE CELLS 2+ (NORMAL); TARGET CELLS 1+ (NORMAL)
[2016-09-21 13:16] LABS: PLATELET ESTIMATE SMEAR NORMAL (NORMAL); PLATELET MORPHOLOGY NORMAL (NORMAL); SCAN/DIFF FINAL DIFF MANUAL
[2016-09-21] MEDS: HYDROmorphone HCL 4 MG TAB PO PRN ×2 (13:43→21:18)
--- NOTE | 2016-09-21 15:18 | RADRPT ---
EXAM DATE/TIME: 09/21/2016 12:33 [facility] COMPARISON: No previous studies available for comparison. INDICATIONS : Patient with avascular necrosis of the left hip in need of steroid injection. MEDICAL HISTORY : 1.Sickle cell crisis 2.History of acute chest syndrome SURGICAL HISTORY : 1.Port placement 2.Cholecystectomy ENCOUNTER: Initial ACUITY: 1 month PAIN SCORE: 7/10 Left hip and body. FLUORO TIME: 0.7 minutes CONTRAST: 1cc Omnipaque (iohexol) 300 DEVICE: 25 gauge needle was placed into the left hip joint MEDICATIONS: 1.) 4 cc Lidocaine IA 2.) 2 cc bupivicaine (Marcaine) IA 3.) 40 mg triamcinolone (Kenalog) IA RESPONSE: Pre procedure pain level was 7/10. Post procedure pain level was 3/10. PROCEDURE : The risks, benefits and alternatives to the procedure were explained and verbal and written consent w as obtained. The site was prepped in sterile fashion. Full sterile technique was used, including ca p, mask, sterile gloves and gown and a large sterile sheet. Hand hygiene and 2% chlorhexidine and/or betadine/alcohol prep was utilized per protocol for cutaneous antisepsis. The skin and subcutaneous tissues were infiltrated with local anesthetic solution. Palpation of the common femoral pulse was performed and its location noted. Under sterile conditions and using aseptic technique with fluoroscopic guidance the joint was punctured and positive contrast was injected to confirm intra-articular position. Following this, the prescribed mixture of Kenalog and local anesthetics was injected. The patient tolerated the procedure well and there were no compl ications. CONCLUSION: Uncomplicated therapeutic left hip injection performed under fluoroscopic guidance. Aaron Quiroz Jr., MD on September 21, 2016 at 15:14 Board Certified Radiologist. This report was verified electronically.
[2016-09-22] MEDS: HYDROmorphone HCL PF 2 MG/ML VIAL IV PRN (02:44)
[2016-09-22] MEDS: NS + KCL 20 MEQ INJ 1,000 ML IV SCH ×3 (04:47→23:00)
[2016-09-22 05:14] VITALS: BP 102/55; PULSE 74; RESP 20; TEMP 98.1; O2SAT 94
[2016-09-22] MEDS ORDERED: POTASSIUM CHLORIDE 10 MEQ CONTROLLED RELEASE TAB PO ONE (05:45)
--- NOTE | 2016-09-22 07:20 | PD.ORT.PN ---
Subjective Subjective Remarks Kevin is a 36-year-old male with sickle cell anemia. He has left hip pain secondary to avascular necrosis. He received a steroid injection by interventional radiology yesterday. His pain is significant improved today. He denies any chronic injuries to his hip. Objective Vitals Vital Signs Date Time Temp Pulse Resp B/P Pulse Ox O2 Delivery O2 Flow Rate FiO2 09/22/16 05:14 98.1 74 20 102/55 94 09/22/16 03:26 18 09/21/16 23:29 98.1 102 20 116/71 95 09/21/16 22:33 92 09/21/16 22:20 18 09/21/16 20:16 97.6 100 20 123/76 93 09/21/16 17:18 97.3 81 18 106/64 92 09/21/16 14:38 83 09/21/16 13:31 96.5 86 18 119/62 91 09/21/16 12:03 96.4 70 18 118/69 92 09/21/16 08:15 96.3 73 18 112/57 91 I/O 09/21/16 09/21/16 09/21/16 09/22/16 09/22/16 09/22/16 07:00 15:00 23:00 07:00 15:00 23:00 Intake Total 1240 ml Output Total 500 ml 1000 ml Balance 740 ml -1000 ml Intake Oral 240 ml IV Total 1000 ml Output Urine Total 500 ml 1000 ml # Voids 3 Result Diagram: 09/21/16 1207 09/20/16 0950 Objective Remarks Patient is a pleasant 36-year-old male in no acute distress. He Is awake and alert. Examination of left leg reveals minimal pain with hip flexion, internal rotation, and external rotation. He is no pain with knee or ankle motion. Skin is intact. Sensation is intact to left foot. Examination of right leg reveals minimal pain with hip, knee, or ankle motion. Sensation is intact in right foot. Assessment & Plan Assessment and Plan Kevin has sickle cell anemia with avascular necrosis of his left hip. At this point I would recommend conservative treatment because of his age. He gets good pain relief from steroid injection, this could be repeated in 3-4 months. Ultimately he will need a total hip replacement. He is in agreement with conservative treatment at this time. All questions were answered. A mid-level provider in my office (nurse practitioner or physician custody assistant) may see this patient on follow-up visits and continue to implement the objectives of this plan including: Starting or adjusting medications, injections , cast application, orthotics, brace application, physical therapy, radiological studies (including x-ray, MRI, CT, ultrasound, bone scan), vascular studies, neurologic studies, specialist consultation, and proceeding with surgical management, as appropriate. Anders Pompa MD Sep 22, 2016 07:20
[2016-09-22 08:00] VITALS: BP 112/69; PULSE 69; PULSE 80; RESP 16; TEMP 98.6; O2SAT 95
[2016-09-22] MEDS: FOLIC ACID 1 MG TAB PO SCH (08:49)
[2016-09-22] MEDS: HYDROmorphone HCL 4 MG TAB PO PRN ×3 (08:49→22:30)
[2016-09-22] MEDS: HYDROXYUREA 500 MG CAP PO SCH (08:50)
[2016-09-22] MEDS: DOCUSATE SODIUM 100 MG CAP PO SCH ×2 (08:50→21:00)
[2016-09-22] MEDS: SODIUM CHLORIDE 0.9% FLUSH 5 ML FLUSH FLUSH SCH ×2 (08:50→21:00)
--- NOTE | 2016-09-22 09:11 | HHI.PR ---
Subjective Remarks Follow-up sickle cell crisis. States he is improving. Left hip pain improved right after steroid injection but now has increased in intensity 7 out of 10. Cleared for discharge by orthopedic surgery. Per patient, hematology wants to keep him another day. Agrees with current pain management Objective Vitals Vital Signs Date Time Temp Pulse Resp B/P Pulse Ox O2 Delivery O2 Flow Rate FiO2 09/22/16 08:00 98.6 80 16 112/69 95 09/22/16 05:14 98.1 74 20 102/55 94 09/22/16 03:26 18 09/21/16 23:29 98.1 102 20 116/71 95 09/21/16 22:33 92 09/21/16 22:20 18 09/21/16 20:16 97.6 100 20 123/76 93 09/21/16 17:18 97.3 81 18 106/64 92 09/21/16 14:38 83 09/21/16 13:31 96.5 86 18 119/62 91 09/21/16 12:03 96.4 70 18 118/69 92 I/O 09/21/16 09/21/16 09/21/16 09/22/16 09/22/16 09/22/16 07:00 15:00 23:00 07:00 15:00 23:00 Intake Total 1240 ml Output Total 500 ml 1000 ml Balance 740 ml -1000 ml Intake Oral 240 ml IV Total 1000 ml Output Urine Total 500 ml 1000 ml # Voids 3 Result Diagram: 09/21/16 1207 09/20/16 0950 Objective Remarks GENERAL: Well-developed well-nourished. In no acute distress. SKIN: Warm and dry. No lesions noted. HEENT: Normocephalic. Pupils equal and round. Mucous membranes pink and moist. CARDIOVASCULAR: Regular rate and rhythm. No murmur appreciated. RESPIRATORY: No accessory muscle use. Clear to auscultation. Breath sounds equal bilaterally. GASTROINTESTINAL: Abdomen soft, non-tender, nondistended. Bowel sounds x4. MUSCULOSKELETAL: No obvious deformities. No clubbing or cyanosis. No edema. NEUROLOGICAL: Awake and alert. No focal neurological deficits. Moves upper and lower extremities spontaneously. Normal speech. PSYCHIATRIC: Appropriate mood and affect; insight and judgment normal. Procedures Intra-articular hip steroid injection A/P Problem List: (1) Avascular necrosis ICD Code: M87.00 Status: Acute (2) Sickle cell crisis ICD Code: D57.00 Status: Acute Assessment and Plan 36-year-old male with a past medical history of sickle cell disease who presents with sickle cell pain Sickle cell crisis: Hemoglobin 9.7, baseline around 10, stable. Absolute reticulocyte count elevated at 243. Continue pain control with oral and IV Dilaudid as needed, transition to oral pain med . Continue hydroxyurea and folic acid. IVF. Appreciate hematology input. Follow-up CBC with stable hemoglobin and slightly increased reticulocyte count. Avascular necrosis of the left hip: Seen on x-ray, reviewed. Pain control. PT recommended orthopedic follow-up. Orthopedics was consulted and recommended intra-articular steroid injection with IR. Outpatient orthopedic follow-up. Improving may need repeat injection in 3-4 months Hypokalemia: Potassium low. Magnesium within normal limits. Replaced potassium orally. Chronic mild leukocytosis. Monitor. Transaminitis: Likely secondary to sickle cell disease. Monitor. DVT prophylaxis: SCDs Discharge Planning Discharge when cleared by hematology Raphael Ng MD Sep 22, 2016 09:11
[2016-09-22] MEDS ORDERED: HYDROmorphone HCL 2 MG TAB PO PRN (09:15)
[2016-09-22] MEDS ORDERED: HYDR500C PO (09:18)
[2016-09-22] MEDS ORDERED: FOLI1TAB4 PO (09:18)
--- NOTE | 2016-09-22 09:18 | HHI.DCPOC ---
Discharge Care Plan Diagnosis: (1) Sickle cell crisis (2) Avascular necrosis (3) Hip pain, left Your Health Problems Are: Difficulty with ADL Exercise Tolerance Chronic Pain Goals to Promote Your Health * To prevent worsening of your condition and complications * To maintain your health at the optimal level Directions to Meet Your Goals Take your medications as prescribed Follow your dietary instruction Follow activity as directed Keep your appointments as scheduled Take your immunizations and boosters as scheduled If your symptoms worsen call your PCP, if no PCP go to Urgent Care Center or Emergency Room Smoking is Dangerous to Your Health. Avoid second hand smoke Call the 24-hour hour crisis hotline for domestic abuse at Raphael Ng MD Sep 22, 2016 09:18
[2016-09-22] MEDS: ONDANSETRON HCL 4 MG/2 ML VIAL IVP PRN (10:31)
--- NOTE | 2016-09-22 10:59 | PD.ONC.PN ---
Subjective Subjective Remarks Afebrile overnight. Patient states he still has pain in left hip. States he cannot walk/has difficulty walking. Per nursing staff, he ambulated to restroom with assistance of only IV pole earlier today. Patient states he otherwise feels well. Objective Data Date Time Temp Pulse Resp B/P Pulse Ox O2 Delivery O2 Flow Rate FiO2 09/22/16 08:00 98.6 80 16 112/69 95 09/22/16 05:14 98.1 74 20 102/55 94 09/22/16 03:26 18 09/21/16 23:29 98.1 102 20 116/71 95 09/21/16 22:33 92 09/21/16 22:20 18 09/21/16 20:16 97.6 100 20 123/76 93 09/21/16 17:18 97.3 81 18 106/64 92 09/21/16 14:38 83 09/21/16 13:31 96.5 86 18 119/62 91 09/21/16 12:03 96.4 70 18 118/69 92 Result Diagram: 09/21/16 1207 09/20/16 0950 Laboratory Results Laboratory Tests Test 09/21/16 12:07 White Blood Count 12.2 TH/MM3 Red Blood Count 2.74 MIL/MM3 Hemoglobin 8.8 GM/DL Hematocrit 25.0 % Mean Corpuscular Volume 91.1 FL Mean Corpuscular Hemoglobin 32.1 PG Mean Corpuscular Hemoglobin 35.2 % Concent Red Cell Distribution Width 24.5 % Platelet Count 290 TH/MM3 Mean Platelet Volume 9.5 FL Neutrophils (%) (Auto) 59.7 % Lymphocytes (%) (Auto) 26.4 % Monocytes (%) (Auto) 10.5 % Eosinophils (%) (Auto) 2.6 % Basophils (%) (Auto) 0.8 % Neutrophils # (Auto) 7.3 TH/MM3 Lymphocytes # (Auto) 3.2 TH/MM3 Monocytes # (Auto) 1.3 TH/MM3 Eosinophils # (Auto) 0.3 TH/MM3 Basophils # (Auto) 0.1 TH/MM3 CBC Comment AUTO DIFF Differential Total Cells 100 Counted Neutrophils % (Manual) 57 % Lymphocytes % 25 % Monocytes % 12 % Eosinophils % 4 % Basophils % 2 % Neutrophils # (Manual) 7.0 TH/MM3 Nucleated Red Blood Cells 1 /100 WBC Differential Comment FINAL DIFF MANUAL Platelet Estimate NORMAL Platelet Morphology Comment NORMAL Polychromasia 4.0 % Sickle Cells 2+ Target Cells 1+ Red Cell Morphology Comment Total Bilirubin 2.7 MG/DL Direct Bilirubin 0.6 MG/DL Indirect Bilirubin 2.1 MG/DL Aspartate Amino Transf 28 U/L (AST/SGOT) Alanine Aminotransferase 30 U/L (ALT/SGPT) Alkaline Phosphatase 114 U/L Total Protein 7.9 GM/DL Albumin 4.1 GM/DL Administered Medications Medications (Trade) Dose Ordered Sig/Arlen Route PRN Reason Start Time Stop Time Status Last Admin Dose Admin Potassium Chloride/Sodium Chloride (NS + KCl 20 Meq Inj) 1,000 ml @ 100 mls/hr Q10H IV 09/19/16 15:00 09/22/16 04:47 Hydromorphone HCl (Dilaudid) 4 mg Q6H PRN PO pain 6-10 09/19/16 13:30 09/22/16 08:49 IV Flush (NS Flush) 2 ml BID FLUSH 09/19/16 21:00 09/20/16 20:49 Ondansetron HCl (Zofran Inj) 4 mg Q6H PRN IVP NAUSEA OR VOMITING 09/19/16 13:30 09/22/16 10:31 Docusate Sodium (Colace) 100 mg Q12HR PO 09/19/16 13:30 09/19/16 13:52 Hydromorphone HCl (Dilaudid Pf Inj) 2 mg Q4HR PRN IV BREAKTHROUGH PAIN 09/19/16 13:30 09/22/16 10:32 Folic Acid (Folate) 1 mg DAILY PO 09/19/16 15:15 09/22/16 08:49 Hydroxyurea (Hydrea) 1,500 mg DAILY PO 09/20/16 09:00 09/22/16 08:50 Objective Remarks GENERAL: Young man, sitting up in bed in nad. SKIN: Warm and dry. HEAD: Normocephalic. EYES: No injection or drainage. NECK: Supple, trachea midline. CARDIOVASCULAR: Regular rate and rhythm. RESPIRATORY: Breath sounds equal bilaterally. No accessory muscle use. GASTROINTESTINAL: Abdomen soft, non-tender, nondistended. EXTREMITIES: No cyanosis. NEUROLOGICAL: AO x 3. normal speech. moving all extremities. Assessment/Plan Problem List: (1) Sickle cell crisis Status: Acute Plan: patient no longer appears to be in crisis. symptomatically improved. 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 --baseline hemoglobin is between 9-10. (2) Avascular necrosis Status: Acute Plan: --ortho following and has cleared patient for discharge. Assessment 36y/o male with a history of sickle cell disease admitted with pain crisis. h/o acute chest syndrome h/o anxiety--on Celexa + xanax Plan 1. clear for discharge from hematology perspective. 2. patient advised to follow up with PCP/hematology upon discharge. Attending Statement The exam, history, and the medical decision-making described in the above note were completed with the assistance of the mid-level provider. I reviewed and agree with the findings presented. I attest that I had a [id number] encounter with the patient on the same day, and personally performed and documented my assessment and findings in the medical record. Still c/o hip pain due to avascular necrosis s/p intraarticular injection. No significant pain crisis at this time. Pt was ambulating. Can be d/c from hematologic standpoint and f/u with ortho. Belem Valente Sep 22, 2016 10:59 Donald Alfonso MD Sep 22, 2016 17:43
--- NOTE | 2016-09-22 11:22 | HHI.DS ---
Discharge Summary Admission Date Sep 19, 2016 at 1:23 pm Discharge Date: Sep 23, 2016 Admitting Diagnosis sickle cell crisis (1) Avascular necrosis ICD Code: M87.00 Diagnosis: Principal (2) Sickle cell crisis ICD Code: D57.00 Diagnosis: Principal Procedures Intra-articular hip steroid injection Brief History - From Admission 36-year-old male with a past medical history of sickle cell disease who presents with sickle cell pain. The patient complains of generalized pain, typical of his usual sickle cell crisis. However he also has been having pain in his left lower extremity from his hip down to his knee that has been getting progressively worse over the past 2 months specially with ambulation. He denies any injury. He hasn't ambulate, but with a limp. He recently moved to this area and has been following with hematology, Dr. Alfonso, who has been managing his pain control. He denies any fever, chills, cough, nausea, vomiting , diarrhea, dysuria. CBC/BMP: 09/21/16 1207 09/20/16 0950 Significant Findings Laboratory Tests Test 09/20/16 09/21/16 09:50 12:07 White Blood Count 11.5 TH/MM3 12.2 TH/MM3 (4.0-11.0) (4.0-11.0) Red Blood Count 2.80 MIL/MM3 2.74 MIL/MM3 (4.50-5.90) (4.50-5.90) Hemoglobin 9.0 GM/DL 8.8 GM/DL (13.0-17.0) (13.0-17.0) Hematocrit 25.5 % 25.0 % (39.0-51.0) (39.0-51.0) Red Cell Distribution Width 23.1 % 24.5 % (11.6-17.2) (11.6-17.2) Monocytes (%) (Auto) 13.4 % 10.5 % (0.0-8.0) (0.0-8.0) Monocytes # (Auto) 1.5 TH/MM3 1.3 TH/MM3 (0-0.9) (0-0.9) Monocytes % 10 % (0-8) 12 % (0-8) Nucleated Red Blood Cells 5 /100 WBC 1 /100 WBC (0-0) (0-0) Platelet Morphology Comment ENLARGED (NORMAL) Sickle Cells 1+ (NORMAL) 2+ (NORMAL) Ovalocytes 1+ (NORMAL) Reticulocyte Count 9.9 % (0.4-3.0) Absolute Reticulocyte Count 277.5 MIL/L (20.0-150.0) Potassium Level 3.3 MEQ/L (3.5-5.1) Creatinine 0.46 MG/DL (0.60-1.30) Calcium Level 8.4 MG/DL (8.5-10.1) Total Bilirubin 3.3 MG/DL 2.7 MG/DL (0.2-1.0) (0.2-1.0) Direct Bilirubin 0.6 MG/DL 0.6 MG/DL (0.0-0.2) (0.0-0.2) Indirect Bilirubin 2.7 MG/DL 2.1 MG/DL (0.0-0.8) (0.0-0.8) Polychromasia 4.0 % (0.0-1.9) Target Cells 1+ (NORMAL) Imaging Last Impressions Therapeutic Injection 09/21/16 0000 Signed Impressions: Service Date/Time: Wednesday, September 21, 2016 12:33 - CONCLUSION: Uncomplicated therapeutic left hip injection performed under fluoroscopic guidance. Aaron Quiroz Jr., MD Chest X-Ray 09/19/16 1020 Signed Impressions: Service Date/Time: Monday, September 19, 2016 10:56 - CONCLUSION: No acute cardiopulmonary abnormality is identified. [id number] distal tip remains in the right heart. Will Jenkins MD Hip X-Ray 09/19/16 0000 Signed Impressions: Service Date/Time: Monday, September 19, 2016 11:01 - CONCLUSION: Abnormal femoral head characteristic of avascular necrosis. There is a slight step off or flattening along the superior aspect which may represent mild collapse. Will Jenkins MD Femur X-Ray 09/19/16 0000 Signed Impressions: Service Date/Time: Monday, September 19, 2016 11:03 - CONCLUSION: Abnormal appearance of the femoral head characteristic of avascular necrosis. No acute abnormality is identified otherwise. Will Jenkins MD PE at Discharge GENERAL: Well-developed well-nourished. In no acute distress. SKIN: Warm and dry. No lesions noted. HEENT: Normocephalic. Pupils equal and round. Mucous membranes pink and moist. CARDIOVASCULAR: Regular rate and rhythm. No murmur appreciated. RESPIRATORY: No accessory muscle use. Clear to auscultation. Breath sounds equal bilaterally. GASTROINTESTINAL: Abdomen soft, non-tender, nondistended. Bowel sounds x4. MUSCULOSKELETAL: No obvious deformities. No clubbing or cyanosis. No edema. NEUROLOGICAL: Awake and alert. No focal neurological deficits. Moves upper and lower extremities spontaneously. Normal speech. PSYCHIATRIC: Appropriate mood and affect; insight and judgment normal. Pt update on day of discharge Discharge was held yesterday secondary to patient requiring IV pain medicine. Today he feels much better pain scale of 4 out of 10 tolerating by mouth medications. He is ready to go home. Hospital Course 36-year-old male with a past medical history of sickle cell disease who presents with sickle cell pain Sickle cell crisis: Hemoglobin 9.7, baseline around 10, stable. Absolute reticulocyte count elevated at 243. Continue pain control with oral and IV Dilaudid as needed, transition to oral pain med . Counseled regarding narcotics for Continue hydroxyurea and folic acid. IVF. Appreciate hematology input. Follow-up CBC with stable hemoglobin and slightly increased reticulocyte count. Avascular necrosis of the left hip: Seen on x-ray, reviewed. Pain control. PT recommended orthopedic follow-up. Orthopedics was consulted and recommended intra-articular steroid injection with IR. Outpatient orthopedic follow-up. Improving may need repeat injection in 3-4 months Hypokalemia: Potassium low. Magnesium within normal limits. Replaced potassium orally. Chronic mild leukocytosis. Monitor. Transaminitis: Likely secondary to sickle cell disease. Monitor. DVT prophylaxis: SCDs Pt Condition on Discharge: Stable Discharge Disposition: Discharge Home Discharge Time: <= 30 minutes Discharge Instructions DIET: Follow Instructions for: As Tolerated, No Restrictions Activities you can perform: Regular-No Restrictions Activities to Avoid: Driving Follow up Referrals: Oncology - 1 Week with Donald Alfonso MD Orthopedics - 10/22/16 @ [facility] with Anders Pompa MD PCP Follow-up - 1 Week New Medications: Folic Acid (Folate) 1 Mg Tab 1 MG PO DAILY sickle #30 TAB Hydroxyurea (Hydrea) 500 Mg Cap 1500 MG PO DAILY sickle #90 CAP Continued Medications: Hydromorphone (Dilaudid) 4 Mg Tab 4 MG PO Q6H PRN Pain Management Ref 0 TAB Promethazine (Phenergan) 25 Mg Tab 25 MG PO Q6H PRN Nausea/Vomiting Ref 0 TAB Tapentadol (Nucynta) 50 Mg Tab 50 MG PO Q4H PRN PAIN Ref 0 TAB Raphael Ng MD Sep 22, 2016 11:22
[2016-09-22 12:00] VITALS: BP 111/63; PULSE 74; RESP 16; TEMP 98; O2SAT 92
[2016-09-22 16:00] VITALS: BP 108/63; PULSE 77; RESP 16; TEMP 98.1; O2SAT 92
[2016-09-22 19:25] VITALS: BP 116/66; PULSE 93; RESP 18; TEMP 98.1; O2SAT 96
[2016-09-22 20:11] VITALS: PULSE 84
[2016-09-23 01:26] VITALS: BP 123/71; PULSE 69; RESP 18; TEMP 97.9; O2SAT 98
[2016-09-23] MEDS: NS + KCL 20 MEQ INJ 1,000 ML IV SCH (03:40)
[2016-09-23 05:26] VITALS: BP 116/74; PULSE 75; RESP 16; TEMP 98; O2SAT 98
[2016-09-23 08:00] VITALS: PULSE 77
[2016-09-23 08:43] VITALS: BP 104/62; PULSE 59; RESP 18; TEMP 99.8; O2SAT 98
[2016-09-23] MEDS: FOLIC ACID 1 MG TAB PO SCH (08:43)
[2016-09-23] MEDS: HYDROXYUREA 500 MG CAP PO SCH (08:43)
[2016-09-23] MEDS: HYDROmorphone HCL 4 MG TAB PO PRN (08:44)
[2016-09-23] MEDS: DOCUSATE SODIUM 100 MG CAP PO SCH (08:44)
[2016-09-23] MEDS: SODIUM CHLORIDE 0.9% FLUSH 5 ML FLUSH FLUSH SCH (08:44)
--- NOTE | 2016-09-23 12:06 | PD.ONC.PN ---
Subjective Subjective Remarks Left hip pain has improved. Able to walk around the room. No CP/SOB. Objective Data Date Time Temp Pulse Resp B/P Pulse Ox O2 Delivery O2 Flow Rate FiO2 09/23/16 08:43 99.8 59 18 104/62 98 09/23/16 05:26 98.0 75 16 116/74 98 09/23/16 01:26 97.9 69 18 123/71 98 09/22/16 23:34 18 09/22/16 20:11 84 09/22/16 19:25 98.1 93 18 116/66 96 09/22/16 16:00 98.1 77 16 108/63 92 Result Diagram: 09/21/16 1207 09/20/16 0950 Administered Medications Medications (Trade) Dose Ordered Sig/Arlen Route PRN Reason Start Time Stop Time Status Last Admin Dose Admin Potassium Chloride/Sodium Chloride (NS + KCl 20 Meq Inj) 1,000 ml @ 100 mls/hr Q10H IV 09/19/16 15:00 09/23/16 03:40 Hydromorphone HCl (Dilaudid) 4 mg Q6H PRN PO pain 6-10 09/19/16 13:30 09/23/16 08:44 IV Flush (NS Flush) 2 ml BID FLUSH 09/19/16 21:00 09/20/16 20:49 Ondansetron HCl (Zofran Inj) 4 mg Q6H PRN IVP NAUSEA OR VOMITING 09/19/16 13:30 09/22/16 10:31 Docusate Sodium (Colace) 100 mg Q12HR PO 09/19/16 13:30 09/19/16 13:52 Hydromorphone HCl (Dilaudid Pf Inj) 2 mg Q4HR PRN IV BREAKTHROUGH PAIN 09/19/16 13:30 09/22/16 10:32 Folic Acid (Folate) 1 mg DAILY PO 09/19/16 15:15 09/23/16 08:43 Hydroxyurea (Hydrea) 1,500 mg DAILY PO 09/20/16 09:00 09/23/16 08:43 Objective Remarks GENERAL: Well-nourished, well-developed patient. SKIN: Warm and dry. HEAD: Normocephalic. EYES: No scleral icterus. No injection or drainage. NECK: Supple, trachea midline. No JVD or lymphadenopathy. LYMPHATIC: No adenopathy. CARDIOVASCULAR: Regular rate and rhythm without murmurs. RESPIRATORY: Breath sounds equal bilaterally. No accessory muscle use. GASTROINTESTINAL: Abdomen soft, non-tender, nondistended. EXTREMITIES: No cyanosis, or edema. MUSCULOSKELETAL: Adequate muscle tone. Left hip pain improved. NEUROLOGICAL: No obvious focal deficit. Awake, alert, and oriented x3. PSYCHIATRIC: Appropriate mood and affect; insight and judgment normal. Assessment/Plan Problem List: (1) Sickle cell crisis Status: Acute Plan: patient no longer appears to be in crisis. symptomatically improved. 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 --baseline hemoglobin is between 9-10. (2) Avascular necrosis Status: Acute Plan: --ortho following and has cleared patient for discharge. His pain has improved after hip injection. Assessment 36y/o male with a history of sickle cell disease admitted with pain crisis. h/o acute chest syndrome h/o anxiety--on Celexa + xanax Plan 1. clear for discharge from hematology perspective. 2. patient advised to follow up with PCP/hematology upon discharge. Donald Alfonso MD Sep 23, 2016 12:06
== END 2016-09-23 17:33 | disposition home or self-care (01) | DRG 812 ==
LOC: NEPA 09:48 → NEDA 13:23 → NEPGCP 18:20
PROVIDERS: ADMIT Internal Medicine; ATTEND Internal Medicine
PROC: 3E0U33Z Introduction of Anti-inflammatory into Joints, Percutaneous Approach (ICD-10-PCS; principal; 2016-09-19)
DX: D57.00 Hb-SS disease with crisis, unspecified (principal); M87.9 Osteonecrosis, unspecified; D72.829 Elevated white blood cell count, unspecified; E87.6 Hypokalemia; F41.9 Anxiety disorder, unspecified; D64.9 Anemia, unspecified; G89.29 Other chronic pain
CPT/HCPCS: 27093; 71020; 73502; 73552; 77002; 80048; 80053; 80076; 82247; 82248; 83615; 83735; 85007; 85025; 85027; 85044; 96361; 96374; 96375; 96376; 99214; E0113; G0463; J1170; J1642; J2405; J3301; J3480; J7030; Q9967